=== PATIENT | female | born 1995 | race Caucasian/White ===

== ENCOUNTER 2018-06-24 00:25 | Outpatient (CLI) | payer MEDICAID ==
[2018-06-24 00:49] VITALS: BP 121/71
[2018-06-24] MEDS ORDERED: VISTARIL PO ONE (01:36)
== END 2018-06-24 01:51 | disposition home or self-care (01) ==
LOC: TRG 00:25
PROVIDERS: ATTEND Obstetrics & Gynecology
DX: O62.8 Other abnormalities of forces of labor (principal); O24.410 Gestational diabetes mellitus in pregnancy, diet controlled; Z3A.38 38 weeks gestation of pregnancy
CPT/HCPCS: 59025; Q0177

== ENCOUNTER 2018-06-25 02:34 | Outpatient (CLI) | payer MEDICAID ==
[2018-06-25 02:46] VITALS: BP 117/70
--- NOTE | 2018-06-25 04:16 | Ultrasound Report ---
FINAL REPORT EXAM: US OB LIMITED HISTORY: leaking of fluid; ZHANE COMPARISONS: None. FINDINGS: Transabdominal limited grayscale, color Doppler and M-mode 3rd trimester ultrasound A single living intrauterine is present with recorded cardiac activity of 133 beats per min lummi in cephalic presentation. Amniotic fluid index is within normal limits and measures approximately 7.5 cm. Maximum vertical pock et depth is 4.3 cm. IMPRESSION: Single living intrauterine in cephalic presentation with amniotic fluid index of approximat willie 7.5 cm.
--- NOTE | 2018-06-25 04:48 | Event Note ---
Date: 06/25/18 Pt examined. Pt has had no leaking of fluid or gush of fluid since being in triage or after the sonogram. Nitrazine confirmed negative and no pooling in the vault or fluid in the speculum. I advised pt that she does not appear to be SROM at this time. Keep scheduled apt with Sebastien Ford on Mon06/27/2017. All questions were addressed and answered.
== END 2018-06-25 04:55 | disposition home or self-care (01) ==
LOC: TRG 02:34
PROVIDERS: ATTEND Obstetrics & Gynecology
DX: O47.1 False labor at or after 37 completed weeks of gestation (principal); O24.410 Gestational diabetes mellitus in pregnancy, diet controlled; Z3A.38 38 weeks gestation of pregnancy
CPT/HCPCS: 59025; 76815

== ENCOUNTER 2018-07-02 06:24 | Inpatient (IN) | payer MEDICAID ==
[2018-07-02] MEDS ORDERED: SUBLIMAZE IV PRN (06:35)
[2018-07-02] MEDS ORDERED: MINERAL OIL PO PRN (06:35)
[2018-07-02] MEDS ORDERED: BRETHINE IVP PRN (06:35)
[2018-07-02] MEDS ORDERED: BRETHINE SUB-Q PRN (06:35)
[2018-07-02] MEDS ORDERED: ZOFRAN IV PRN (06:35)
[2018-07-02] MEDS ORDERED: XYLOCAINE 2% INFILTRATI ONE (06:35)
--- NOTE | 2018-07-02 06:50 | History and Physical Report ---
History of Present Illness Date of examination: 07/02/18 (active labor) History of present illness: EDC Confirmation: 07/06/2018 Gestational Age: 7 3/7 weeks Past History : 2 Term Births: 1 Premature Births: 0 Living Children: 1 Para: 1 Mult. Births: 0 Prev : 0 Prev. attempt? 0 Aborta: 0 Elect. Ab: 0 Spont. Ab: 0 Ectopics: 0 # 1 Delivery date: 08/24/2015 Weeks Gestation: 41 Delivery type: Vaginal Hours of labor: 21 Anesthesia type: epidural Delivery location: [facility] Sex: male weight: 7.69 Comments: meconium postdates induction Past Medical History: Reviewed history from 03/16/2012 and no changes required: Negative Past Medical History Past Surgical History: L Breast Biopsy: Family History Summary: Reviewed history Last on 01/05/2015 and no changes required:12/17/2017 Mother (biol.) - Has Family History of Diabetes - Entered On: 01/05/2015 General Comments - FH: Family History of Diabetes Social History: Smoking History: Patient has never smoked. Patient is retail wireless sales representative Risk Factors: Smoked Tobacco Use: Never smoker Alcohol use: yes Drinks per day: social Dietary Counseling: pn yes Past Medical History Surgery (Non-coater carbon paper): L Breast Biopsy: Abnormal PAP: negative HERNAN Exposure: negative Infertility: negative Uterine Anomaly: negative Uterine Surgery (not C/S): negative Social Hx: Smoking History: Patient has never smoked. Patient is retail wireless sales representative Genetic History Congenital Heart Defect: Mom: no Dad: no Susan Disease: Mom: no Dad: no Thalassemia Mom: no Dad: no Neural Tube Defect Mom: no Dad: no Down's Syndrome Mom: no Dad: no Lloyd-Sachs Mom: no Dad: no Sickle Cell Disease/Trait Mom: no Dad: no Hemophilia Mom: no Dad: no Muscular Dystrophy Mom: no Dad: no Cystic Fibrosis Mom: no Dad: no [place] Chorea Mom: no Dad: no Mental Retardation Mom: no Dad: no Fragile X Mom: no Dad: no Other Genetic/Chromosomal Disorder Mom: no Dad: no Child w/other defect Mom: no Dad: no Active Medications (reviewed today): ZOFRAN ODT 8 MG ORAL TABLET DISINTEGRATING (ONDANSETRON) 1 po q12hrs prn Current Allergies (reviewed today): No known allergies Past History - Obstetrical History Expected Date of Delivery: 07/06/18 Actual Gestation: 39 Week(s) 3 Day(s) : 2 Para: 1 Hx # Term Pregnancies: 1 Number of Pregnancies: 0 Spontaneous Abortions: 0 Induced : 0 Number of Living Children: 1 Medications and Allergies Allergies Allergy/AdvReac Type Severity Reaction Status Date / Time No Known Allergies Allergy Verified 07/20/15 09:46 Home Medications Medication Instructions Recorded Confirmed Last Taken Type Complete Caplet 1 caplet PO QDAY 04/14/15 06/25/18 06/25/18 History Active Meds: Active Medications Ephedrine Sulfate (Ephedrine Sulfate) 10 mg IV Q2M PRN PRN Reason: Hypotension Fentanyl (Sublimaze) 100 mcg IV Q2H PRN PRN Reason: Labor Pain Lactated Ringer's (Lactated Ringers) 1,000 mls @ 125 mls/hr IV DIRECT ROXANE Oxytocin/Sodium Chloride (Pitocin/Ns 20 Unit/1000ml Drip) 20 units in 1,000 mls @ 125 mls/hr IV DIRECT ROXANE Oxytocin/Sodium Chloride (Pitocin/Ns 30 Unit/500ml) 30 units in 500 mls @ 1 mls/hr IV TITR ROXANE; Protocol Oxytocin/Sodium Chloride (Pitocin/Ns 30 Unit/500ml) 30 units in 500 mls @ 4 mls/hr IV Q30MIN ROXANE; Protocol Lidocaine (Xylocaine 2%) 20 ml INFILTRATI ONCE ONE Stop: 07/02/18 06:36 Mineral Oil (Mineral Oil) 30 ml PO QHS PRN PRN Reason: Constipation Ondansetron HCl (Zofran) 4 mg IV Q8H PRN PRN Reason: Nausea And Vomiting Terbutaline Sulfate (Brethine) 0.25 mg SUB-Q ONCE PRN PRN Reason: Hyperstimulation/Hypertonicity Terbutaline Sulfate (Brethine) 0.25 mg IVP ONCE PRN PRN Reason: Hyperstimulation/Hypertonicity - Vital Signs Vital signs: Vital Signs Pulse BP 88 122/78 07/02/18 06:37 07/02/18 06:37 Temp Pulse Resp BP Pulse Ox 88 122/78 07/02/18 06:37 07/02/18 06:37 - Physical Exam Breasts: Positive: deferred Cardiovascular: Regular rate, Normal S1, Normal S2 Lungs: Positive: Normal air movement Abdomen: Positive: normal appearance, soft, normal bowel sounds. Negative: distention, tenderness Genitourinary (Female): Positive: normal external genitalia Vulva: both: normal Vagina: Positive: normal moisture. Negative: discharge Cervix: Negative: lesion, discharge Uterus: Positive: normal size, normal contour Adnexa: both: normal Anus/Rectum: Positive: normal perianal skin, heme negative. Negative: rectal mass, hemorrhoids Extremities: Positive: normal Deep Tendon Reflex Grade: Normal +2 - Obstetrical FHR: category 1 Uterine Contraction Monitor Mode: External Cervical Dilatation: 5 Cervical Effacement Percentage: 90 station: -1 Uterine Contraction Pattern: Regular Uterine Tone Measurement Phase: Resting Uterine Contraction Intensity: Moderate Results All other labs normal. Strep Gp B ISABEL Negative HBsAg Screen Negative Negative *1 RPR Non Reactive Non Reactive *2 Rubella Antibodies, IgG [L] <0.90 index Immune >0.99 *3 Non-immune <0.90 Equivocal 0.90 - 0.99 Immune >0.99 ABO Grouping O *4 Rh Factor Positive *5 Please note: Prior records for this patient's ABO / Rh type are not available for additional verification. Antibody Screen Negative Negative *6 WBC 6.9 x10E3/uL 3.4-10.8 *7 RBC 3.98 x10E6/uL 3.77-5.28 *8 Hemoglobin 12.1 g/dL 11.1-15.9 *9 Hematocrit 36.8 % 34.0-46.6 *10 MCV 93 fL 79-97 *11 MCH 30.4 pg 26.6-33.0 *12 MCHC 32.9 g/dL 31.5-35.7 *13 RDW 14.5 % 12.3-15.4 *14 Platelets 239 x10E3/uL 150-379 *15 Neutrophils 71 % Not Estab. *16 Lymphs 22 % Not Estab. *17 Monocytes 6 % Not Estab. *18 Eos 1 % Not Estab. *19 Basos 0 % Not Estab. *20 ! Immature Cells <No Reported Value> *21 Neutrophils (Absolute) 4.9 x10E3/uL 1.4-7.0 *22 Lymphs (Absolute) 1.5 x10E3/uL 0.7-3.1 *23 Monocytes(Absolute) 0.4 x10E3/uL 0.1-0.9 *24 Eos (Absolute) 0.1 x10E3/uL 0.0-0.4 *25 Baso (Absolute) 0.0 x10E3/uL 0.0-0.2 *26 ! Immature Granulocytes 0 % Not Estab. *27 ! Immature Grans (Abs) 0.0 x10E3/uL 0.0-0.1 *28 ! NRBC <No Reported Value> *29 Hematology Comments: <No Reported Value> *30 Tests: (2) Panel 283478 ([id number]) HIV Screen 4th Generation wRfx Non Reactive Non Reactive *31 Tests: (3) HCV Ab w/Rflx to Verification ([id number]) ! HCV Ab <0.1 s/co ratio 0.0-0.9 *32 Tests: (4) Comment: ([id number]) ! Comment: SPRCS *33 Non reactive HCV antibody screen is consistent with no HCV infection, unless recent infection is suspected or other evidence exists to indicate HCV infection. Tests: (5) Urine Culture, Routine (037990) Urine Culture, Routine Final report *34 Tests: (6) Result ([id number]) ! Result 1 No growth *35 Assessment and Plan 22yo @ 39 weeks in active labor GBS negative Orders in EMR
[2018-07-02] MEDS ORDERED: PITOCin/NS 20 UNIT/1000ML DRIP 20 UNITS/1,000 ML BAG IV SCH (07:00)
[2018-07-02] MEDS ORDERED: PITOCin/NS 30 UNIT/500ML 30 UNITS/500 ML BAG IV SCH (07:00)
[2018-07-02] MEDS: LACTATED RINGERS 1,000 ML IV SCH ×2 (07:17→08:25)
[2018-07-02 07:37] LABS: Hematocrit 34.5 % (30.3-42.9); Hemoglobin 11.1 gm/dl (10.1-14.3); Mean Corpuscular HGB Conc 32 % (30-34); Mean Corpuscular Volume 80 fl (79-97); Platelet Count 311 K/mm3 (140-440); Red Blood Count 4.32 M/mm3 (3.65-5.03); Red Cell Distribution Width 16.3 % (13.2-15.2)
--- NOTE | 2018-07-02 09:20 | Anesthesia Consultation ---
Anesthesia Consult and Med Hx Date of service: 07/02/18 - Airway Anesthetic Teeth Evaluation: Good ROM Head & Neck: Adequate Mental/Hyoid Distance: Adequate Mallampati Class: Class II Intubation Access Assessment: Good - Pulmonary Exam CTA: Yes - Cardiac Exam Cardiac Exam: No Murmur - Pre-Operative Health Status ASA Pre-Surgery Classification: ASA2 Proposed Anesthetic Plan: Epidural - Pulmonary Hx Smoking: No Hx Asthma: No Hx Respiratory Symptoms: No SOB: No COPD: No Home Oxygen Therapy: No Hx Pneumonia: No Hx Sleep Apnea: No - Cardiovascular System Hx Hypertension: No Hx Coronary Artery Disease: No Hx Heart Attack/AMI: No Hx Angina: No Hx Percutaneous Transluminal Coronary Angioplasty (PTCA): No Hx Cardia Arrhythmia: No Hx Pacemaker: No Hx Internal Defibrillator: No Hx Valvular Heart Disease: No Hx Heart Murmur: No Hx Peripheral Vascular Disease: No - Central Nervous System Hx Neuromuscular Disorder: No Hx Seizures: No CVA: No Hx Back Pain: No Hx Psychiatric Problems: No - Gastrointestinal Hx Ulcer: No Hx Gastroesophageal Reflux Disease: No - Endocrine Hx Renal Disease: No Hx End Stage Renal Disease: No Hx Cirrhosis: No Hx Liver Disease: No Hx Insulin Dependent Diabetes: No Hx Non-Insulin Dependent Diabetes: No Hx Thyroid Disease: No Hx Hypothyroidism: No Hx Hyperthyroidism: No - Hematic Hx Anemia: No Hx Sickle Cell Disease: No - Other Systems Hx Alcohol Use: No Hx Substance Use: No Hx Cancer: No Hx Obesity: No
[2018-07-02] MEDS ORDERED: NARCAN 2 MG/2 ML IV PRN (09:21)
[2018-07-02] MEDS ORDERED: NUBAIN IV PRN (09:21)
[2018-07-02] MEDS: PITOCin/NS 30 UNIT/500ML 30 UNITS/500 ML BAG IV SCH ×2 (09:38→11:08)
[2018-07-02] MEDS ORDERED: fentaNYL-BUPIV 2 MCG/ML-0.125% 200 MCG/100 ML BAG EPIDURAL SCH (10:00)
[2018-07-02] MEDS ORDERED: BENADRYL IV PRN (10:00)
--- NOTE | 2018-07-02 12:31 | Progress Note ---
Assessment and Plan anticipate delivery Subjective - Subjective Date of service: 07/02/18 (comfortable with epidural) Interval history: EDC Confirmation: 07/06/2018 Gestational Age: 7 3/7 weeks Past History : 2 Term Births: 1 Premature Births: 0 Living Children: 1 Para: 1 Mult. Births: 0 Prev : 0 Prev. attempt? 0 Aborta: 0 Elect. Ab: 0 Spont. Ab: 0 Ectopics: 0 # 1 Delivery date: 08/24/2015 Weeks Gestation: 41 Delivery type: Vaginal Hours of labor: 21 Anesthesia type: epidural Delivery location: [facility] Sex: male weight: 7.69 Comments: meconium postdates induction Past Medical History: Reviewed history from 03/16/2012 and no changes required: Negative Past Medical History Past Surgical History: L Breast Biopsy: Family History Summary: Reviewed history Last on 01/05/2015 and no changes required:12/17/2017 Mother (biol.) - Has Family History of Diabetes - Entered On: 01/05/2015 General Comments - FH: Family History of Diabetes Social History: Smoking History: Patient has never smoked. Patient is fast food sales assistant Risk Factors: Smoked Tobacco Use: Never smoker Alcohol use: yes Drinks per day: social Dietary Counseling: pn yes Past Medical History Surgery (Non-claims sorter): L Breast Biopsy: Abnormal PAP: negative HERNAN Exposure: negative Infertility: negative Uterine Anomaly: negative Uterine Surgery (not C/S): negative Social Hx: Smoking History: Patient has never smoked. Patient is fast food sales assistant Genetic History Congenital Heart Defect: Mom: no Dad: no Susan Disease: Mom: no Dad: no Thalassemia Mom: no Dad: no Neural Tube Defect Mom: no Dad: no Down's Syndrome Mom: no Dad: no Lloyd-Sachs Mom: no Dad: no Sickle Cell Disease/Trait Mom: no Dad: no Hemophilia Mom: no Dad: no Muscular Dystrophy Mom: no Dad: no Cystic Fibrosis Mom: no Dad: no [place] Chorea Mom: no Dad: no Mental Retardation Mom: no Dad: no Fragile X Mom: no Dad: no Other Genetic/Chromosomal Disorder Mom: no Dad: no Child w/other defect Mom: no Dad: no Active Medications (reviewed today): ZOFRAN ODT 8 MG ORAL TABLET DISINTEGRATING (ONDANSETRON) 1 po q12hrs prn Current Allergies (reviewed today): No known allergies Patient reports: movement normal Objective - Vital Signs Vital Signs: Vital Signs - 12hr 07/02/18 07/02/18 07/02/18 06:37 07:58 08:03 Temperature Pulse Rate 88 80 94 H Respiratory Rate Blood Pressure 122/78 Blood Pressure [Right] O2 Sat by Pulse 98 97 Oximetry 07/02/18 07/02/18 07/02/18 08:06 08:08 08:13 Temperature 98.2 F Pulse Rate 77 86 92 H Respiratory 15 Rate Blood Pressure 129/82 Blood Pressure 129/82 [Right] O2 Sat by Pulse 97 97 Oximetry 07/02/18 07/02/18 07/02/18 08:18 08:23 08:28 Temperature Pulse Rate 85 95 H 103 H Respiratory Rate Blood Pressure Blood Pressure [Right] O2 Sat by Pulse 96 96 95 Oximetry 07/02/18 07/02/18 07/02/18 08:29 08:33 08:38 Temperature Pulse Rate 96 H 94 H 86 Respiratory Rate Blood Pressure Blood Pressure [Right] O2 Sat by Pulse 94 93 92 Oximetry 07/02/18 07/02/18 07/02/18 08:43 08:46 08:48 Temperature Pulse Rate 97 H 119 H 90 Respiratory Rate Blood Pressure Blood Pressure [Right] O2 Sat by Pulse 92 93 97 Oximetry 07/02/18 07/02/18 07/02/18 08:53 08:58 09:03 Temperature Pulse Rate 91 H 94 H 98 H Respiratory Rate Blood Pressure Blood Pressure [Right] O2 Sat by Pulse 97 97 97 Oximetry 07/02/18 07/02/18 07/02/18 09:06 09:08 09:09 Temperature Pulse Rate 76 80 92 H Respiratory Rate Blood Pressure 129/70 126/71 Blood Pressure [Right] O2 Sat by Pulse 98 Oximetry 07/02/18 07/02/18 07/02/18 09:13 09:15 09:18 Temperature Pulse Rate 87 71 71 Respiratory Rate Blood Pressure 94/54 Blood Pressure [Right] O2 Sat by Pulse 98 97 Oximetry 07/02/18 07/02/18 07/02/18 09:20 09:23 09:24 Temperature Pulse Rate 71 78 89 Respiratory Rate Blood Pressure 109/63 102/57 Blood Pressure [Right] O2 Sat by Pulse 98 Oximetry 07/02/18 07/02/18 07/02/18 09:28 09:33 09:38 Temperature Pulse Rate 96 H 78 81 Respiratory Rate Blood Pressure Blood Pressure [Right] O2 Sat by Pulse 97 96 97 Oximetry 07/02/18 07/02/18 07/02/18 09:43 09:48 09:53 Temperature Pulse Rate 90 99 H 100 H Respiratory Rate Blood Pressure 119/68 Blood Pressure [Right] O2 Sat by Pulse 99 98 99 Oximetry 07/02/18 07/02/18 07/02/18 09:58 09:59 10:03 Temperature Pulse Rate 79 77 85 Respiratory Rate Blood Pressure 114/65 Blood Pressure [Right] O2 Sat by Pulse 98 98 Oximetry 07/02/18 07/02/18 07/02/18 10:08 10:13 10:18 Temperature Pulse Rate 98 H 93 H 85 Respiratory Rate Blood Pressure 118/63 Blood Pressure [Right] O2 Sat by Pulse 99 99 98 Oximetry 07/02/18 07/02/18 07/02/18 10:23 10:28 10:33 Temperature Pulse Rate 76 89 91 H Respiratory Rate Blood Pressure 117/77 Blood Pressure [Right] O2 Sat by Pulse 98 98 98 Oximetry 07/02/18 07/02/18 07/02/18 10:38 10:43 10:44 Temperature Pulse Rate 84 83 80 Respiratory Rate Blood Pressure 116/63 Blood Pressure [Right] O2 Sat by Pulse 99 98 Oximetry 07/02/18 07/02/18 07/02/18 10:48 10:53 10:58 Temperature Pulse Rate 78 116 H 98 H Respiratory Rate Blood Pressure 127/76 Blood Pressure [Right] O2 Sat by Pulse 97 99 98 Oximetry 07/02/18 07/02/18 07/02/18 11:03 11:08 11:13 Temperature Pulse Rate 91 H 82 83 Respiratory Rate Blood Pressure Blood Pressure [Right] O2 Sat by Pulse 98 96 97 Oximetry 07/02/18 07/02/18 07/02/18 11:14 11:18 11:23 Temperature Pulse Rate 82 95 H 101 H Respiratory Rate Blood Pressure 120/67 Blood Pressure [Right] O2 Sat by Pulse 95 97 Oximetry 07/02/18 07/02/18 07/02/18 11:28 11:33 11:38 Temperature Pulse Rate 99 H 89 97 H Respiratory Rate Blood Pressure 122/79 Blood Pressure [Right] O2 Sat by Pulse 97 97 95 Oximetry 07/02/18 07/02/18 07/02/18 11:43 11:48 11:53 Temperature Pulse Rate 100 H 89 85 Respiratory Rate Blood Pressure 112/70 Blood Pressure [Right] O2 Sat by Pulse 95 97 96 Oximetry 07/02/18 07/02/18 07/02/18 11:58 12:03 12:08 Temperature Pulse Rate 115 H 112 H 102 H Respiratory Rate Blood Pressure 127/69 Blood Pressure [Right] O2 Sat by Pulse 98 99 98 Oximetry 07/02/18 07/02/18 07/02/18 12:13 12:18 12:23 Temperature Pulse Rate 88 99 H 101 H Respiratory Rate Blood Pressure 126/72 Blood Pressure [Right] O2 Sat by Pulse 98 98 98 Oximetry 07/02/18 07/02/18 12:28 12:29 Temperature Pulse Rate 94 H 96 H Respiratory Rate Blood Pressure 122/70 Blood Pressure [Right] O2 Sat by Pulse 98 Oximetry - Exam Breasts: deferred Cardiovascular: Regular rate Lungs: Normal air movement Abdomen: Present: normal appearance, soft. Absent: distention, tenderness Uterus: Present: normal FHR: auscultation normal, category 1 Uterine Contraction Monitor Mode: External Cervical Dilatation: 9 Cervical Effacement Percentage: 100 station: 0 Uterine Contraction Pattern: Regular Uterine Tone Measurement Phase: Resting Uterine Contraction Intensity: Moderate Extremities: normal - Labs Labs: Abnormal Labs 07/02/18 07:02 MCH 26 L RDW 16.3 H Laboratory Results - last 24 hr 07/02/18 07/02/18 07:02 07:02 WBC 10.5 RBC 4.32 Hgb 11.1 Hct 34.5 MCV 80 MCH 26 L MCHC 32 RDW 16.3 H Plt Count 311 Blood Type O POSITIVE Antibody Screen Negative
[2018-07-02] MEDS ORDERED: TUCKS PAD TP PRN (15:16)
[2018-07-02] MEDS ORDERED: BENADRYL PO PRN (15:16)
[2018-07-02] MEDS ORDERED: TYLENOL PO PRN (15:16)
[2018-07-02] MEDS ORDERED: PHENERGAN PO PRN (15:16)
[2018-07-02] MEDS ORDERED: MILK OF MAGNESIA PO PRN (15:16)
[2018-07-02] MEDS ORDERED: DULCOLAX PR PRN (15:16)
[2018-07-02] MEDS ORDERED: LANSINOH TP PRN (15:16)
--- NOTE | 2018-07-02 15:24 | Procedure Note ---
OB Delivery Note - Delivery Date of Delivery: 07/02/18 Retail Sales Advisor: ESTEPHANIE JOSEPH Estimated blood loss: 300cc - Vaginal Delivery presentation: vertex Delivery position: OA Intrapartum events: other(please specify) (GDM diet controlled) Delivery induction: none Delivery augmentation: pitocin Delivery monitor: internal FHT, internal uterine Route of delivery: Delivery placenta: spontaneous Delivery cord: true knot, 3 umbilical vessels Episiotomy: none Delivery laceration: none Anesthesia: epidural Delivery comments: live born male over intact perineum Baby to mom's abdomen skin to skin Cord blood obtained. Placenta and membrane delivered complete and intact, 3 vessel cord. True knot note in cord. Placenta to pathology GDM. 8/9, EBL 300, Wgt 9-11 Pit IVFs Mom and baby remain LDR stable. - Infant A at 1 minute: 8 at 5 minutes: 9 Gender: Male (wgt 9-11)
[2018-07-02] MEDS ORDERED: SODIUM CHLORIDE FLUSH SYRINGE 10 ML IV SCH (16:00)
[2018-07-02] MEDS: IBUPROFEN PO SCH (17:19)
[2018-07-02] MEDS: COLACE PO SCH (22:29)
[2018-07-03] MEDS: IBUPROFEN PO SCH ×3 (00:11→11:38)
[2018-07-03 03:34] LABS: Hematocrit 26.1 % (30.3-42.9); Hemoglobin 8.5 gm/dl (10.1-14.3)
[2018-07-03] MEDS ORDERED: BOOSTRIX IM ONE (06:00)
--- NOTE | 2018-07-03 08:18 | Discharge Summary ---
Providers - Providers Date of Admission: 07/02/18 07:38 Date of discharge: 07/03/18 (pt desires discharge today as long as baby is discharged, may stay til tomorrow if baby can not be discharged this afternoon.) Attending physician: BRENDA JACK Primary care physician: BRENDA JACK Hospitalization Reason for admission: labor at term Condition: Good Pertinent studies: post delivery H&H 8.5/26.1, pt is asymptomatic. Procedures: Hospital course: uncomplicated labor & delivery and course. Disposition: DC- TO HOME OR SELFCARE Core Measure Documentation - Palliative Care Palliative Care/ Comfort Measures: Not Applicable - Core Measures Any of the following diagnoses?: none Exam - Constitutional Vitals: Temp Pulse Resp BP Pulse Ox 97.9 F 81 18 103/56 98 07/03/18 01:10 07/03/18 01:10 07/03/18 01:10 07/03/18 01:10 07/02/18 12:48 General appearance: Present: no acute distress, well-nourished - EENT Eyes: Present: PERRL ENT: hearing intact, clear oral mucosa - Neck Neck: Present: supple, normal ROM - Respiratory Respiratory effort: normal Respiratory: bilateral: CTA - Cardiovascular Rhythm: regular Heart Sounds: Present: S1 & S2. Absent: rub, click - Extremities Extremities: pulses symmetrical, No edema Peripheral Pulses: within normal limits - Abdominal General gastrointestinal: Present: soft, non-tender, non-distended, normal bowel sounds Female genitourinary: Present: normal - Integumentary Integumentary: Present: clear, warm, dry - Musculoskeletal Musculoskeletal: gait normal, strength equal bilaterally - Psychiatric Psychiatric: appropriate mood/affect, intact judgment & insight - Neurologic Neurologic: CNII-XII intact, moves all extremities - Additional findings Additional findings: fundus firm, ML, U/2. Bleeding scant. Perineum intact. going well, supplementing with formula as needed. Pain is minimal, controlled with IBU. Plan Activity: no restrictions Diet: regular Follow up with: BRENDA JACK MD [Primary Care Provider] - 6 Weeks (Congratulations! Please call [phone] today to schedule your son's circumcision in the office for 1 week. Bring EMLA cream with you to his appointment and await further in structions for use. Please schedule your appointment for 6 weeks after delivery. Call with any questions or concerns. )
[2018-07-03] MEDS ORDERED: FEOSOL PO SCH (10:00)
[2018-07-03] MEDS ORDERED: PRENATAL VITAMIN PO SCH (10:00)
[2018-07-03] MEDS: COLACE PO SCH (11:38)
[2018-07-03] MEDS ORDERED: M-M-R II VACCINE SUB-Q ONE (15:16)
[2018-07-03 17:23] VITALS: BP 110/66
== END 2018-07-03 18:20 | disposition home or self-care (01) | DRG 775 ==
LOC: TRG 06:24 → LD 07:38 → OB 15:08
PROVIDERS: ADMIT Obstetrics & Gynecology; ATTEND Obstetrics & Gynecology
PROC: 10E0XZZ Delivery of Products of Conception, External Approach (ICD-10-PCS; principal; 2018-07-02)
PROC: 3E0R3BZ Introduction of Anesthetic Agent into Spinal Canal, Percutaneous Approach (ICD-10-PCS; 2018-07-02)
PROC: 00HU33Z Insertion of Infusion Device into Spinal Canal, Percutaneous Approach (ICD-10-PCS; 2018-07-02)
PROC: 3E0234Z Introduction of Serum, Toxoid and Vaccine into Muscle, Percutaneous Approach (ICD-10-PCS; 2018-07-02)
DX: O24.420 Gestational diabetes mellitus in childbirth, diet controlled (principal); Z3A.39 39 weeks gestation of pregnancy; Z37.0 Single live birth; Z83.3 Family history of diabetes mellitus; Z23 Encounter for immunization
CPT/HCPCS: 36415; 82962; 85014; 85018; 85027; 86592; 86850; 86900; 86901; 88307; G0378; A6250; J2590; J3010; J7120